=== PATIENT | female | born 1965 | race Caucasian/White ===

== ENCOUNTER → 2017-03-24 | Outpatient (CLI) | payer OTHER | LOC: FIMAGING 09:48 | PROVIDERS: ATTEND Physician Assistant | DX: M79.671 Pain in right foot (principal); M19.071 Primary osteoarthritis, right ankle and foot; Z98.890 Other specified postprocedural states ==

== ENCOUNTER → 2018-06-01 | Outpatient (CLI) | payer OTHER | LOC: BMCIMAGING 16:13 | PROVIDERS: ATTEND Internal Medicine Rheumatology | DX: M43.12 Spondylolisthesis, cervical region (principal); M47.892 Other spondylosis, cervical region ==